=== PATIENT | female | born 1970 | race Hispanic/Latino ===

== ENCOUNTER 2024-02-17 17:57 | Emergency (ER) | payer BC ==
[~2024-02-17] VITALS: Ht 157.5 cm; Wt 81.6 kg
[2024-02-17 17:59] VITALS: BP 117/76; PULSE 100; RESP 16; TEMP 98.3
[2024-02-17 18:42] LABS: APPEARANCE,URINE CLOUDY (CLEAR); BILIRUBIN,URINE NEGATIVE (NEGATIVE); COLOR,URINE LIGHT-YELLOW (YELLOW); GLUCOSE, URINE (UA) >=1000 mg/dL (NEGATIVE); KETONES,URINE NEGATIVE (NEGATIVE); LEUKOCYTE ESTERASE ,URINE 25 Leu/uL (NEGATIVE); NITRATE,URINE NEGATIVE (NEGATIVE); OCCULT BLOOD,URINE LARGE (NEGATIVE); PH,URINE 5.5 (5.0-8.0); PROTEIN,URINE 20 mg/dL (NEGATIVE); UROBILINOGEN,URINE 0.2 mg/dL (0.2-1.0)
[2024-02-17 18:45] LABS: ADD UA MICROSCOPIC YES
[2024-02-17 18:46] LABS: MUCUS,URINE RARE LPF (None Seen); NON-SQUAMOUS EPITHELIAL CELL 1 /HPF (0-2); RBC,URINE >100 /HPF (0-1); SQUAMOUS EPITHELIAL CELL,UR FEW /HPF (0-2)
[2024-02-17 18:52] LABS: BASOPHILS # (AUTO) 0.06 K/uL (0.00-0.20); BASOPHILS % (AUTO) 0.5 % (0.0-5.0); EOSINOPHILS # (AUTO) 0.12 K/uL (0.00-0.70); IMMATURE GRANULOCYTE ABSOLUTE 0.05 K/uL (0-1); LYMPHOCYTES # (AUTO) 2.3 K/uL (1.0-4.8); LYMPHOCYTES % (AUTO) 19.6 % (21.0-51.0); MEAN CORPUSCULAR HEMOGLOBIN 27.3 pg (27.0-33.0); MEAN CORPUSCULAR HGB CONC 32.8 g/dL (32.0-36.0); MEAN CORPUSCULAR VOLUME 83.1 fL (79-99); MONOCYTES # (AUTO) 0.8 K/uL (0.1-1.0); MONOCYTES % (AUTO) 6.3 % (3.0-13.0); NEUTROPHILS # (AUTO) 8.6 K/uL (1.8-7.7); NEUTROPHILS % (AUTO) 72.2 % (40.0-77.0); PLATELET COUNT (AUTO) 375 K/uL (130-400); RED BLOOD CELL COUNT(AUTO) 4.33 MIL/uL (4.00-5.50); RED CELL DISTRIBUTION WIDTH 13.1 % (11.0-15.5); WHITE BLOOD COUNT (AUTO) 11.9 K/uL (4.8-10.8)
[2024-02-17 19:00] LABS: CREATININE 1.3 mg/dL (0.5-1.0); POTASSIUM 3.1 mmol/L (3.5-5.1)
[2024-02-17] MEDS: POTASSIUM BICARB/CIT AC 25 MEQ TABLET.EFF PO ONE (20:01)
[2024-02-17] MEDS: AMOX/CLAV 875/125MG TAB PO ONE (20:01)
[2024-02-17] MEDS: HYDROcodone/APAP 5/325 1 TAB TABLET PO ONE (20:22)
[2024-02-17] MEDS ORDERED: AMOX1TAB16 PO (21:08)
[2024-02-17] MEDS ORDERED: ACET-2079 PO (21:08)
[2024-02-17] MEDS: ketOROlac 60 MG VIAL (30MG/ML) IM ONE (21:14)
[2024-02-17] MEDS: ONDANSETRON ODT 4MG TAB SL ONE (21:34)
[2024-02-21] MEDS ORDERED: VALS1TAB73 PO (21:46)
[2024-02-21] MEDS ORDERED: LINA290C PO (21:46)
[2024-02-21] MEDS ORDERED: EMPA1TAB19 PO (21:46)
== END 2024-02-17 21:36 | disposition home or self-care (01) ==
LOC: EDH 17:57
DX: N13.2 Hydronephrosis with renal and ureteral calculous obstruction (principal); N30.00 Acute cystitis without hematuria; I12.9 Hypertensive chronic kidney disease with stage 1 through stage 4 chronic kidney disease, or unspecified chronic kidney disease; E11.22 Type 2 diabetes mellitus with diabetic chronic kidney disease; N18.9 Chronic kidney disease, unspecified; Z98.890 Other specified postprocedural states
CPT/HCPCS: 99284; 76770; 80048; 85025; 87086; 81001; 36415; 96372; J1885

== ENCOUNTER 2024-03-12 20:06 | Inpatient (IN) | payer BC ==
[~2024-03-12] VITALS: Ht 157.5 cm; Wt 85.3 kg
[~2024-03-12 20:06] MED LIST: EMPA1TAB19 PO; LINA290C PO; VALS1TAB73 PO
[2024-03-12 20:58] LABS: APPEARANCE,URINE CLEAR (CLEAR); BILIRUBIN,URINE NEGATIVE (NEGATIVE); COLOR,URINE COLORLESS (YELLOW); GLUCOSE, URINE (UA) 500 mg/dL (NEGATIVE); KETONES,URINE NEGATIVE (NEGATIVE); LEUKOCYTE ESTERASE ,URINE NEGATIVE Leu/uL (NEGATIVE); NITRATE,URINE NEGATIVE (NEGATIVE); OCCULT BLOOD,URINE NEGATIVE (NEGATIVE); PROTEIN,URINE NEGATIVE (NEGATIVE); UROBILINOGEN,URINE 0.2 mg/dL (0.2-1.0)
[2024-03-12 21:01] LABS: ADD UA MICROSCOPIC YES
[2024-03-12 21:03] LABS: BACTERIA,URINE RARE /HPF (None Seen); MUCUS,URINE RARE LPF (None Seen); RBC,URINE 0-1 /HPF (0-1); SQUAMOUS EPITHELIAL CELL,UR RARE /HPF (0-2)
[2024-03-12] MEDS: ondanSETRON 4MG INJ IVP ONE (21:11)
[2024-03-12] MEDS: morPHINE 2 MG SYG IVP ONE (21:11)
[2024-03-12] MEDS: 0.9%NACL 1000ML 1,000 ML IV ONE (21:11)
[2024-03-12 21:21] LABS: BASOPHILS # (AUTO) 0.07 K/uL (0.00-0.20); BASOPHILS % (AUTO) 0.4 % (0.0-5.0); EOSINOPHILS # (AUTO) 0.29 K/uL (0.00-0.70); EOSINOPHILS % (AUTO) 1.8 % (0.0-8.0); HEMATOCRIT 36.7 % (36-48); IMMATURE GRANULOCYTE ABSOLUTE 0.08 K/uL (0-1); LYMPHOCYTES # (AUTO) 1.1 K/uL (1.0-4.8); LYMPHOCYTES % (AUTO) 6.5 % (21.0-51.0); MEAN CORPUSCULAR HEMOGLOBIN 27.6 pg (27.0-33.0); MEAN CORPUSCULAR VOLUME 83.6 fL (79-99); MONOCYTES # (AUTO) 0.9 K/uL (0.1-1.0); MONOCYTES % (AUTO) 5.6 % (3.0-13.0); NEUTROPHILS % (AUTO) 85.2 % (40.0-77.0); PLATELET COUNT (AUTO) 396 K/uL (130-400); RED BLOOD CELL COUNT(AUTO) 4.39 MIL/uL (4.00-5.50); RED CELL DISTRIBUTION WIDTH 13.5 % (11.0-15.5); WHITE BLOOD COUNT (AUTO) 16.5 K/uL (4.8-10.8)
[2024-03-12 21:31] LABS: CREATININE 2.1 mg/dL (0.5-1.0); POTASSIUM 3.2 mmol/L (3.5-5.1)
[2024-03-12] MEDS: CEFTRIAXONE 2GM VIAL IVPB ONE (22:26)
[2024-03-12] MEDS: 0.9%NACL 1000ML 2,394 ML IV ONE (22:26)
[2024-03-12] MEDS: PoTASSium BIcarbonate/CIT AC 25 MEQ TABLET.EFF PO ONE (22:26)
[2024-03-12] MEDS ORDERED: acetaMINOPHEN 650 MG/20.3 ML UDCUP PO PRN (23:00)
[2024-03-12] MEDS: ZOSYN 3.375GM +NS 50ML IVPB SCH (23:18)
[2024-03-12] MEDS: acetaMINOPHEN 325 MG TAB ONE (23:34)
[2024-03-12] MEDS: acetaMINOPHEN 325 MG TAB PO PRN (23:34)
[2024-03-13] VITALS (17 sets, daily range): BP systolic 84–155; BP diastolic 53–76; PULSE 69–129; RESP 18–25; TEMP 98.7–100.5; O2SAT 95–97
[2024-03-13] MEDS ORDERED: DOCU100C33 PO (00:26)
[2024-03-13] MEDS ORDERED: BIOT10005 PO (00:26)
[2024-03-13] MEDS ORDERED: TAMS-1 PO (00:26)
[2024-03-13] MEDS ORDERED: UBID100C10 PO (00:26)
[2024-03-13] MEDS ORDERED: AEC81 PO (00:26)
[2024-03-13] MEDS ORDERED: ROSU5TAB43 PO (00:26)
[2024-03-13] MEDS ORDERED: FOLI1 PO (00:26)
[2024-03-13] MEDS ORDERED: CYAN-106 PO (00:26)
[2024-03-13] MEDS ORDERED: MONT-39 PO (00:26)
[2024-03-13] MEDS: INSULIN humuLIN R 100 UNIT/ML 3ML SQ SCH (06:43)
[2024-03-13 14:18] LABS: INR 1.12 (0.85-1.15)
[2024-03-13 14:19] LABS: PARTIAL THROMBOPLASTIN TIME 36.3 SEC (26.3-35.5)
[2024-03-13] MEDS ORDERED: IOHEXOL-350 50ML VIAL IV ONE (16:05)
[2024-03-13] MEDS ORDERED: MIDAZOLAM HCL 1 MG/ML 2ML VIAL ONE (16:05)
[2024-03-13] MEDS ORDERED: FENTanyl CITRate PF 50 MCG/1 ML 2ML VIAL ONE (16:05)
[2024-03-13] MEDS ORDERED: LIDOCAINE HCL 400MG/20ML VIAL ONE (16:05)
[2024-03-13] MEDS: ondanSETRON 4MG INJ IVP PRN (18:14)
[2024-03-13] MEDS: monteLUKAST sodIUM 10 MG TAB PO SCH (20:44)
[2024-03-13] MEDS: atorVAStatin 10 MG TABLET PO SCH (20:44)
[2024-03-13] MEDS: doCUSate SODIUM 100 MG CAP PO SCH (20:44)
[2024-03-13] MEDS: (Linaclotide (Linzess) 290 MCG) PO SCH (20:46)
[2024-03-13] MEDS: ASPIRIN 81 MG EC TAB PO SCH (20:46)
[2024-03-13] MEDS ORDERED: PHARMACY COMMUNICATION MISC SCH (23:00)
[2024-03-13] MEDS ORDERED: morPHINE 2 MG SYG IVP PRN (23:30)
[2024-03-14] VITALS (7 sets, daily range): BP systolic 93–121; BP diastolic 60–72; PULSE 91–103; RESP 16–18; TEMP 97.9–99.4; O2SAT 95–98
[2024-03-14 06:03] LABS: HEMATOCRIT 29.2 % (36-48); MEAN CORPUSCULAR HEMOGLOBIN 27.3 pg (27.0-33.0); MEAN CORPUSCULAR HGB CONC 33.2 g/dL (32.0-36.0); MEAN CORPUSCULAR VOLUME 82.3 fL (79-99); RED BLOOD CELL COUNT(AUTO) 3.55 MIL/uL (4.00-5.50); RED CELL DISTRIBUTION WIDTH 13.9 % (11.0-15.5); WHITE BLOOD COUNT (AUTO) 12.2 K/uL (4.8-10.8)
[2024-03-14 06:25] LABS: ALBUMIN 2.2 g/dL (3.5-5.0); BILIRUBIN,TOTAL 0.3 mg/dL (0.2-1.0); CREATININE 2.2 mg/dL (0.5-1.0); MAGNESIUM 1.1 mg/dL (1.80-2.40); POTASSIUM 3.1 mmol/L (3.5-5.1); TOTAL PROTEIN, SERUM 6.1 g/dL (6.0-8.3)
[2024-03-14] MEDS: MAGNESIUM 2GM PREMIX 50ML 50 ML IV PRN (06:52)
[2024-03-14] MEDS: PoTASSium chloRIDE 20MEQ ER 20 MEQ ERTAB PO PRN (06:54)
[2024-03-14] MEDS ORDERED: PoTASSium chl 10% ELIXIR 20MEQ 20 MEQ/15 ML UDCUP PO PRN (07:00)
[2024-03-14] MEDS ORDERED: PoTASSium chloRIDE 20MEQ/100ML 100 ML IV PRN (07:00)
[2024-03-14] MEDS: MAG/ALUM/SIMETH 30 ML UDCUP PO PRN (08:35)
[2024-03-14] MEDS: FOLic ACID 1 MG TABLET PO SCH (08:36)
[2024-03-14] MEDS: PANTOPrazole 40 MG TAB DR PO SCH (08:36)
[2024-03-14] MEDS: tamSULOsin HCL 0.4 MG CAP.ER.24H PO SCH (08:36)
[2024-03-14] MEDS: UBIDECARENONE 200 MG PO SCH (08:37)
[2024-03-14] MEDS: CYANOCOBALAMIN (VITAMIN B-12) 1,000 MCG TABLET PO SCH (08:37)
[2024-03-14] MEDS: METFORMIN HCL PO SCH (08:38)
[2024-03-14] MEDS: EMPAGLIFLOZIN PO SCH (08:38)
[2024-03-14] MEDS: (Biotin 10,000 MCG) PO SCH (08:38)
[2024-03-14] MEDS: VALSARTAN HCTZ PO SCH (09:00)
[2024-03-14] MEDS: fluCONazole 200 MG/NS 100 ML 100 ML IV SCH (12:23)
[2024-03-15] VITALS (7 sets, daily range): BP systolic 94–112; BP diastolic 51–67; PULSE 67–90; RESP 17–19; TEMP 97.6–98.6; O2SAT 97
[2024-03-15 05:44] LABS: CREATININE 2.2 mg/dL (0.5-1.0); MAGNESIUM 1.7 mg/dL (1.80-2.40); POTASSIUM 3.8 mmol/L (3.5-5.1)
[2024-03-15 05:47] LABS: HEMATOCRIT 31.4 % (36-48); MEAN CORPUSCULAR HEMOGLOBIN 27.6 pg (27.0-33.0); MEAN CORPUSCULAR HGB CONC 32.8 g/dL (32.0-36.0); MEAN CORPUSCULAR VOLUME 84.2 fL (79-99); RED BLOOD CELL COUNT(AUTO) 3.73 MIL/uL (4.00-5.50); RED CELL DISTRIBUTION WIDTH 14.1 % (11.0-15.5); WHITE BLOOD COUNT (AUTO) 5.8 K/uL (4.8-10.8)
[2024-03-16] VITALS (8 sets, daily range): BP systolic 95–156; BP diastolic 52–77; PULSE 65–89; RESP 18–20; TEMP 97.6–99.9; O2SAT 98
[2024-03-16 09:35] LABS: BASOPHILS # (AUTO) 0.02 K/uL (0.00-0.20); BASOPHILS % (AUTO) 0.4 % (0.0-5.0); EOSINOPHILS # (AUTO) 0.08 K/uL (0.00-0.70); EOSINOPHILS % (AUTO) 1.5 % (0.0-8.0); HEMATOCRIT 32.1 % (36-48); IMMATURE GRANULOCYTE ABSOLUTE 0.06 K/uL (0-1); LYMPHOCYTES # (AUTO) 0.7 K/uL (1.0-4.8); LYMPHOCYTES % (AUTO) 12.3 % (21.0-51.0); MEAN CORPUSCULAR HEMOGLOBIN 26.4 pg (27.0-33.0); MEAN CORPUSCULAR HGB CONC 31.5 g/dL (32.0-36.0); MEAN CORPUSCULAR VOLUME 83.8 fL (79-99); MONOCYTES # (AUTO) 0.4 K/uL (0.1-1.0); MONOCYTES % (AUTO) 6.4 % (3.0-13.0); NEUTROPHILS # (AUTO) 4.3 K/uL (1.8-7.7); NEUTROPHILS % (AUTO) 78.3 % (40.0-77.0); PLATELET COUNT (AUTO) 187 K/uL (130-400); RED BLOOD CELL COUNT(AUTO) 3.83 MIL/uL (4.00-5.50); RED CELL DISTRIBUTION WIDTH 14.3 % (11.0-15.5); WHITE BLOOD COUNT (AUTO) 5.4 K/uL (4.8-10.8)
[2024-03-16 09:53] LABS: ALBUMIN 2.1 g/dL (3.5-5.0); BILIRUBIN,TOTAL 0.3 mg/dL (0.2-1.0); CREATININE 2.1 mg/dL (0.5-1.0); MAGNESIUM 1.5 mg/dL (1.80-2.40); POTASSIUM 3.3 mmol/L (3.5-5.1); TOTAL PROTEIN, SERUM 6.6 g/dL (6.0-8.3)
[2024-03-16] MEDS ORDERED: COMPOUND IV REFRIGERATED 1 EACH IVSOLN MISC PRN (13:30)
[2024-03-16] MEDS ORDERED: COMPOUND IV MISC 1 EACH IVSOLN MISC PRN (13:30)
[2024-03-16] MEDS ORDERED: PHARMACY COMMUNICATION MISC SCH (13:30)
[2024-03-16] MEDS: MICAFUNGIN 100MG+NS 100ML 100 ML IV SCH (14:39)
[2024-03-16 16:36] LABS: PROTHROMBIN TIME 10.8 SEC (9.6-11.6)
[2024-03-17 04:00] VITALS: BP 106/64; PULSE 66; RESP 20; TEMP 98.3
[2024-03-17 06:18] LABS: BASOPHILS # (AUTO) 0.03 K/uL (0.00-0.20); BASOPHILS % (AUTO) 0.5 % (0.0-5.0); EOSINOPHILS # (AUTO) 0.15 K/uL (0.00-0.70); EOSINOPHILS % (AUTO) 2.5 % (0.0-8.0); HEMATOCRIT 29.4 % (36-48); IMMATURE GRANULOCYTE ABSOLUTE 0.03 K/uL (0-1); LYMPHOCYTES # (AUTO) 1.1 K/uL (1.0-4.8); LYMPHOCYTES % (AUTO) 18.4 % (21.0-51.0); MEAN CORPUSCULAR HEMOGLOBIN 27.4 pg (27.0-33.0); MEAN CORPUSCULAR HGB CONC 32.7 g/dL (32.0-36.0); MEAN CORPUSCULAR VOLUME 83.8 fL (79-99); MONOCYTES # (AUTO) 0.6 K/uL (0.1-1.0); MONOCYTES % (AUTO) 9.3 % (3.0-13.0); NEUTROPHILS # (AUTO) 4.1 K/uL (1.8-7.7); NEUTROPHILS % (AUTO) 68.8 % (40.0-77.0); PLATELET COUNT (AUTO) 182 K/uL (130-400); RED BLOOD CELL COUNT(AUTO) 3.51 MIL/uL (4.00-5.50); RED CELL DISTRIBUTION WIDTH 14.2 % (11.0-15.5)
[2024-03-17 06:33] LABS: CREATININE 1.7 mg/dL (0.5-1.0); MAGNESIUM 1.7 mg/dL (1.80-2.40); POTASSIUM 3.4 mmol/L (3.5-5.1)
[2024-03-17 08:00] VITALS: BP 108/72; PULSE 80; RESP 20; TEMP 98.2
[2024-03-17 08:30] VITALS: O2SAT 96
[2024-03-17 12:00] VITALS: BP 109/68; PULSE 90; RESP 20; TEMP 97.8
[2024-03-17 16:00] VITALS: BP 105/69; PULSE 92; RESP 20; TEMP 97.6
== END 2024-03-17 16:30 | disposition home or self-care (01) | DRG 698 ==
LOC: EDH 20:06 → EDHIP 22:18 → 3DH 03-13 00:02
PROVIDERS: ADMIT Internal Medicine Infectious Disease; ATTEND Internal Medicine Infectious Disease
PROC: 0T9030Z Drainage of Right Kidney with Drainage Device, Percutaneous Approach (ICD-10-PCS; principal; 2024-03-13)
PROC: BT111ZZ Fluoroscopy of Right Kidney using Low Osmolar Contrast (ICD-10-PCS; 2024-03-13)
PROC: BT41ZZZ Ultrasonography of Right Kidney (ICD-10-PCS; 2024-03-13)
PROC: 05HC33Z Insertion of Infusion Device into Left Basilic Vein, Percutaneous Approach (ICD-10-PCS; 2024-03-16)
PROC: B54NZZA Ultrasonography of Left Upper Extremity Veins, Guidance (ICD-10-PCS; 2024-03-16)
DX: T83.022A Displacement of nephrostomy catheter, initial encounter (principal); A41.50 Gram-negative sepsis, unspecified; N13.6 Pyonephrosis; B37.49 Other urogenital candidiasis; E66.01 Morbid (severe) obesity due to excess calories; N19 Unspecified kidney failure; E11.9 Type 2 diabetes mellitus without complications; E87.6 Hypokalemia; N99.522 Malfunction of incontinent external stoma of urinary tract; I10 Essential (primary) hypertension; M10.9 Gout, unspecified; Y73.2 Prosthetic and other implants, materials and accessory gastroenterology and urology devices associated with adverse incidents; Z83.3 Family history of diabetes mellitus; Z87.440 Personal history of urinary (tract) infections; Z87.442 Personal history of urinary calculi; Z68.34 Body mass index [BMI] 34.0-34.9, adult
CPT/HCPCS: 10030; 36415; 50432; 50435; 74176; 80048; 80053; 81001; 82948; 83605; 83735; 85025; 85027; 85610; 85730; 87040; 87071; 87205; 96365; 96375; 99156; 99157; C1769; C1894; G0378; J0696; J1450; J2248; J2250; J2270; J2405; J2543; J3010; J3475; J3490; J7030; Q9967; C1729; C1750

== ENCOUNTER → 2024-03-31 | Outpatient (CLI) | payer BC ==
[~2024-03-31] MED LIST changes: +AEC81 PO; +BIOT10005 PO; +CYAN-106 PO; +DOCU100C33 PO; +FOLI1 PO; +MONT-39 PO; +ROSU5TAB43 PO; +TAMS-1 PO; +UBID100C10 PO
== END | disposition home or self-care (01) ==
LOC: RAH 09:48
PROVIDERS: ATTEND Urology
DX: N20.0 Calculus of kidney (principal); M47.815 Spondylosis without myelopathy or radiculopathy, thoracolumbar region
CPT/HCPCS: 74018; 76100